=== PATIENT | male | born 1985 | race Caucasian/White ===

== ENCOUNTER 2019-02-23 10:58 | Emergency (ER) | payer MEDICAID ==
[~2019-02-23] VITALS: Ht 180.3 cm; Wt 93.2 kg
[~2019-02-23 10:58] MED LIST: BACDS PO; CLIN-96 PO; HYDR-4383 PO; NO HOME MEDS
[2019-02-23 12:38] VITALS: BP 120/80
== END 2019-02-23 12:40 | disposition home or self-care (01) ==
LOC: ER 10:59
DX: M79.644 Pain in right finger(s) (principal); M79.641 Pain in right hand; F12.90 Cannabis use, unspecified, uncomplicated; F10.99 Alcohol use, unspecified with unspecified alcohol-induced disorder; Y90.9 Presence of alcohol in blood, level not specified; Z88.1 Allergy status to other antibiotic agents; Z79.899 Other long term (current) drug therapy; W24.1XXA Contact with transmission devices, not elsewhere classified, initial encounter; Y93.89 Activity, other specified; Y92.89 Other specified places as the place of occurrence of the external cause; Y99.8 Other external cause status
CPT/HCPCS: 73120; 99283